=== PATIENT | male | born 1970 | race Caucasian/White ===

== ENCOUNTER 2018-03-01 15:24 | Outpatient (CLI) | payer OTHER | END 2018-03-01 15:25 | disposition home or self-care (01) | LOC: SC 15:24 | PROVIDERS: ATTEND Internal Medicine Pulmonary Disease | DX: G47.33 Obstructive sleep apnea (adult) (pediatric) (principal) | CPT/HCPCS: 99203; 99212 ==

== ENCOUNTER 2018-04-16 21:44 | Outpatient (CLI) | payer OTHER | END 2018-04-16 21:45 | disposition home or self-care (01) | LOC: SC 21:44 | PROVIDERS: ATTEND Internal Medicine Pulmonary Disease | DX: G47.33 Obstructive sleep apnea (adult) (pediatric) (principal); G47.61 Periodic limb movement disorder | CPT/HCPCS: 95810 ==

== ENCOUNTER 2018-05-26 15:33 | Outpatient (CLI) | payer OTHER | END 2018-05-26 15:34 | disposition home or self-care (01) | LOC: SC 15:33 | PROVIDERS: ATTEND Nurse Practitioner Family | DX: G47.33 Obstructive sleep apnea (adult) (pediatric) (principal); G47.61 Periodic limb movement disorder | CPT/HCPCS: 99212; 99214 ==

== ENCOUNTER 2018-07-26 15:43 | Outpatient (CLI) | payer OTHER | END 2018-07-26 15:44 | disposition home or self-care (01) | LOC: SC 15:43 | PROVIDERS: ATTEND Nurse Practitioner Family | DX: G47.33 Obstructive sleep apnea (adult) (pediatric) (principal) | CPT/HCPCS: 99212; 99214 ==

== ENCOUNTER 2018-10-27 15:45 | Outpatient (CLI) | payer OTHER | END 2018-10-27 15:46 | disposition home or self-care (01) | LOC: SC 15:45 | PROVIDERS: ATTEND Nurse Practitioner Family | DX: G47.33 Obstructive sleep apnea (adult) (pediatric) (principal) | CPT/HCPCS: 99212; 99214 ==

== ENCOUNTER 2019-07-27 15:12 | Outpatient (CLI) | payer OTHER ==
--- NOTE | 2019-07-27 16:10 | SLEEP CARE CONSULTATION ---
Information from patient questionnaire entered by Christine Joaquin. I have reviewed and concur with the information entered by Christine Joaquin. This document represents the service I personally performed and the decisions made by me, Giovana Horne, RN, MSN, [employer]. History of Present Illness Previous diagnosis: Severe, Obstructive Sleep Apnea-Hypopnea Syndrome AHI: 56.5 Reason for follow up: other (9 month) Equipment type: CPAP Equipment obtained from: [employer] Mask style: Nasal (N20) Mask brand: [employer] HPI additional information: The nasal bridge soreness from glasses was reduced reduced with new frame. The nathalie from nasal mask on bridge of nose is significantly less with changing mask cushions more often and resolves quickly. He was also advised to obtain more sleep. CPAP Compliance Data - Data Reviewed with Patient Average duration of nightly device use: 5.5 Compliance rate %: 92 (180 days) Current pressure setting (cmH2O): 6 Humidity settin Average residual AHI: 1.1 Subjective Patient concerns: reports: nasal congestion (with cold and affects CPAP use. ). denies: aerophagia, mask discomfort, air blowing in eyes, mask leak noise, condensation in mask/hose, dry mouth, nose, throat, epistaxis, other Observed to snore while using device: No Current pressure setting perceived as: comfortable On therapy, patient: reports: sleeping better, awakening more refreshed, being more awake and alert during the day, more rested overall. denies: drowsiness while driving Initial [place] Sleepiness Scale score: 7 Current [place] Sleepiness Scale score: 8 Allergies and Home Medications Known drug allergies: No Home medication list reviewed: Yes (none) Review of Systems Review of systems same as previous: No (Flu ) Physical Exam Blood Pressure: 110/80 Cuff size: regular Heart Rate: 72 O2 Saturation: 99 Height: 5 ft 8 in ( ) Weight: 191 lb 12.8 oz Weight change since last visit: gained 5 pounds Body Mass Index: 29.1 BMI Classification: Overweight Impression and Plan 1. Obstructive Sleep Apnea-Hypopnea Syndrome, severe, with good treatment compliance and good apnea control. On CPAP therapy, the patient has better sleep quality and is more rested overall. He is now using a bedtime timer on phone to get to bed on time but falling asleep while relaxing in bed listening to podcast. To prevent falling asleep without CPAP, he is advised to put on his CPAP mask before he listens to his podcast. I showed him the polysomnography hypnogram to show how the hypoxia from his apnea to show the importance of using his CPAP with all sleep to obtain maximum benefit from treatment. The goal is a minimum of 7 hours of sleep as discussed at last visit. Nasal congestion can be reduced with increasing the CPAP humidity as shown on sample device. The heated hose can be adjusted higher if condensation with higher humidity setting. Saline nasal spray sample was also given to use prior to CPAP to clear nasal secretions and wash off any nasal allergens to facilitate nasal breathing. In addition, a steamy shower before bed will often assist nasal drainage. Printed instructions given on how to change humidity and heated hose settings with rationale explaining why to change. Patient's apnea severity and rationale for treatment to reduce apnea, improve sleep quality and reduce cardiovascular and cerebrovascular events was reviewed. Since patient has more severe apnea in supine position, patient advised to avoid supine sleep with pillow positioning if unable to use CPAP while ill or if without electricity to reduce apnea risk and elevate head of bed 30-40 degrees. * Continue CPAP pressure at 6 cmH2O * Implement methods to reduce nasal congestion * Use CPAP with all sleep. * Notify me if snoring with mask or feeling that the pressure is too much or too little * Attempt to lose weight * Call this office if any problems using CPAP * Return for follow up in 1 year , or sooner if concerns arise Time Spent with Patient (minutes): 30 I spent 100% of this visit face to face with the patient with greater than 50% of this was spent time counseling the patient and coordination of care.
[2019-07-27 16:11] VITALS: BP 110/80
== END 2019-07-27 15:13 | disposition home or self-care (01) ==
LOC: SC 15:12
PROVIDERS: ATTEND Nurse Practitioner Family
DX: G47.33 Obstructive sleep apnea (adult) (pediatric) (principal); E66.3 Overweight; Z68.29 Body mass index [BMI] 29.0-29.9, adult
CPT/HCPCS: 99212; 99214

== ENCOUNTER 2020-07-27 16:15 | Outpatient (CLI) | payer OTHER ==
--- NOTE | 2020-07-27 16:45 | SLEEP CARE CONSULTATION ---
Information from patient questionnaire entered by Dontae Polanco. I have reviewed and concur with the information entered by Dontae Polanco. This document represents the service I personally performed and the decisions made by , Vickie Fernandez ARNP. History of Present Illness Service Date and Time: 07/27/2020 1615 Previous diagnosis: Severe, Obstructive Sleep Apnea-Hypopnea Syndrome AHI: 56.5 Reason for follow up: annual (Last seen 07/2019) Equipment type: CPAP Equipment obtained from: [facility] (getting supplies as needed) Mask style: Nasal (N20) Backup mask available: Yes (old mask) Last cushion change: 3-4 days ago Year and Where: 2018 [facility] additional information: DAJA SMITH was diagnosed to have severe, AHI 56.5, obstructive sleep apnea- hypopnea syndrome and returned today for CPAP therapy annual follow-up. CPAP Compliance Data - Data Reviewed with Patient Average duration of nightly device use: 4 h 26 min Compliance rate %: 56 Current pressure setting (cmH2O): 6 Average residual AHI: 0.9 Central apnea: 0.2 Obstructive apnea: 0.3 Subjective Missed days of use due to: reports: other (dog sick; forget to put on) Patient concerns: reports: other (sometimes left ear is plugged). denies: aerophagia, mask discomfort, air blowing in eyes, mask leak noise, condensation in mask/hose, nasal congestion, dry mouth, nose, throat, epistaxis Observed to snore while using device: No Current pressure setting perceived as: comfortable On therapy, patient: reports: sleeping better, awakening more refreshed, being more awake and alert during the day, more rested overall. denies: drowsiness while driving Initial [place] Sleepiness Scale score: 7 (in 2018) Current [place] Sleepiness Scale score: 8 Allergies and Home Medications Drug allergies reviewed: Yes (NKDA) Home medication list reviewed: Yes (no changes) Review of Systems Review of systems same as previous: Yes (no changes) Physical Exam Heart Rate: 83 O2 Saturation: 98 Height: 5 ft 8 in ( ) Weight: 194 lb Body Mass Index: 29.5 BMI Classification: Overweight Impression and Plan 1. Obstructive Sleep Apnea-Hypopnea Syndrome, severe, with fair treatment compliance and good apnea control. On CPAP therapy, the patient has better sleep quality and is more rested overall. Patient has missed some time on his machine because his dog has been sick and he has to get up with him several times a night. He will forget to put the mask back on or just not put back on for rest of night. He has missed some time when he decides to not use it on the weekend. He was reminded of compliance guidelines and he voiced understanding. I will have him follow up in 1-2 months to recheck compliance. He voiced understanding and agreement with plan of care. Patient's apnea severity and rationale for sandee tment to reduce apnea, improve sleep quality and reduce cardiovascular and cerebrovascular events was reviewed. * Continue auto CPAP pressure at 6 cmH2O * Notify me if snoring with mask or feeling that the pressure is too much or too little * Attempt to lose weight * Call this office if any problems using CPAP * Return for follow up in 1-2 months, or sooner if concerns arise Counseling Topics: Spare mask, Weight loss health impact Visit Type: In Office Time Spent with Patient (minutes): 17 Provider Statement: I spent 100% of the Face to Face Visit with the patient with greater than 50% spent counseling the patient and coordination of care.
== END 2020-07-27 16:16 | disposition home or self-care (01) ==
LOC: SC 16:15
PROVIDERS: ATTEND Nurse Practitioner Family
DX: G47.33 Obstructive sleep apnea (adult) (pediatric) (principal); E66.3 Overweight; Z68.29 Body mass index [BMI] 29.0-29.9, adult
CPT/HCPCS: 99212

== ENCOUNTER 2020-09-25 16:17 | Outpatient (CLI) | payer OTHER ==
--- NOTE | 2020-09-25 16:34 | SLEEP CARE CONSULTATION ---
Information from patient questionnaire entered by Dontae Polanco. I have reviewed and concur with the information entered by Dontae Polanco. This document represents the service I personally performed and the decisions made by me, Vickie Fernandez ARNP. History of Present Illness Service Date and Time: 09/25/2020 1617 Previous diagnosis: Severe, Obstructive Sleep Apnea-Hypopnea Syndrome AHI: 56.5 Reason for follow up: other (2-month followup) Equipment type: CPAP Equipment obtained from: [employer] (getting supplies as needed) Mask style: Nasal (over the nose) Backup mask available: Yes (old mask) Last cushion change: 1 week ago Year and Where: 2018 [facility] additional information: DAJA SMITH was diagnosed to have severe, AHI 56.5, obstructive sleep apnea- hypopnea syndrome and returned today for CPAP therapy two month compliance recheck follow-up. CPAP Compliance Data - Data Reviewed with Patient Average duration of nightly device use: 6 h 3 min Compliance rate %: 97 Current pressure setting (cmH2O): 6 Average residual AHI: 1.0 Subjective Patient concerns: denies: aerophagia, mask discomfort, air blowing in eyes, mask leak noise, condensation in mask/hose, nasal congestion, dry mouth, nose, throat, epistaxis, other Observed to snore while using device: No Current pressure setting perceived as: comfortable On therapy, patient: reports: sleeping better, awakening more refreshed, being more awake and alert during the day, more rested overall. denies: drowsiness while driving Initial [place] Sleepiness Scale score: 7 (in 2018) Current [place] Sleepiness Scale score: 6 Allergies and Home Medications Home medication list reviewed: Yes (no new meds) Review of Systems Review of systems same as previous: Yes (no changes) Physical Exam Heart Rate: 84 O2 Saturation: 97 Height: 5 ft 8 in ( ) Weight: 193 lb Body Mass Index: 29.3 BMI Classification: Overweight Impression and Plan 1. Obstructive Sleep Apnea-Hypopnea Syndrome, severe, with good treatment compliance and good apnea control. On CPAP therapy, the patient has better sleep quality and is more rested overall. He is not very compliant with his CPAP treatment and has had significant improvement of his sleep apnea. He is satisfied with his treatment. Patient's apnea severity and rationale for treatment to reduce apnea, improve sleep quality and reduce cardiovascular and cerebrovascular events was reviewed. * Continue autoCPAP pressure at 6 cmH2O * Notify me if snoring with mask or feeling that the pressure is too much or too little * Attempt to lose weight * Call this office if any problems using CPAP * Return for follow up in 1 year, or sooner if concerns arise Counseling Topics: Spare mask, Weight loss health impact Visit Type: In Office Time Spent with Patient (minutes): 16 Provider Statement: I spent 100% of the Face to Face Visit with the patient with greater than 50% spent counseling the patient and coordination of care.
== END 2020-09-25 16:18 | disposition home or self-care (01) ==
LOC: SC 16:17
PROVIDERS: ATTEND Nurse Practitioner Family
DX: G47.33 Obstructive sleep apnea (adult) (pediatric) (principal); E66.3 Overweight; Z68.29 Body mass index [BMI] 29.0-29.9, adult
CPT/HCPCS: 99212

== ENCOUNTER 2021-10-30 10:49 | Outpatient (CLI) | payer BC, OTHER ==
--- NOTE | 2021-10-30 11:38 | SLEEP CARE CONSULTATION ---
Information from patient questionnaire entered by Stewart Roberson MA. I have reviewed and concur with the information entered by Stewart Roberson MA. This document represents the service I personally performed and the decisions made by , Vickie Fernandez ARNP. History of Present Illness Service Date and Time: 10/30/2021 1049 Previous diagnosis: Severe, Obstructive Sleep Apnea-Hypopnea Syndrome AHI: 56.5 Reason for follow up: annual (LAST SEEN 09/25/2020, ALONZO 06/2018, RESMED, ) Equipment type: CPAP Equipment obtained from: [employer] (getting supplies as needed) Mask style: Nasal (over the nose) Backup mask available: Yes (other mask) Last cushion change: few days ago Year and Where: 2017 [facility] HPI additional information: DAJA SMITH was diagnosed to have severe, AHI 56.5, obstructive sleep apnea- hypopnea syndrome and returned today for CPAP therapy annual follow-up. Sleep Study - Results Year and Where: 2017 [facility] CPAP Compliance Data - Data Reviewed with Patient Average duration of nightly device use: 5 HOURS 32 MINUTES Compliance rate %: 81 (05/02/21-10/28/21; 180 days, used 176/180) Current pressure setting (cmH2O): 6 Average residual AHI: 1.2 Central apnea: .1 Obstructive apnea: .4 Hypopnea: .6 Average large leak: 10.2 Subjective Missed days of use due to: reports: travel ([place], ) Patient concerns: denies: aerophagia, mask discomfort, air blowing in eyes, mask leak noise, condensation in mask/hose, nasal congestion, dry mouth, nose, throat, epistaxis, other Observed to snore while using device: No Current pressure setting perceived as: comfortable On therapy, patient: reports: sleeping better, awakening more refreshed, being more awake and alert during the day, more rested overall. denies: drowsiness while driving Initial [place] Sleepiness Scale score: 7 (in 2018) Current [place] Sleepiness Scale score: 7 (09/2021) Allergies and Home Medications Known drug allergies: No Drug allergies reviewed: Yes Home medication list reviewed: Yes (vitamin D) Review of Systems Review of systems same as previous: No (eye blurriness 1 month ago) Physical Exam Vital signs obtained and entered by: STEVE RAMIREZ Blood Pressure: 128/77 (RIGHT, PULSE 82, RESP 18, ) Heart Rate: 80 O2 Saturation: 98 (CLOTH) Height: 5 ft 8 in ( ) Weight: 191 lb Body Mass Index: 29.0 BMI Classification: Overweight Impression and Plan 1. Obstructive Sleep Apnea-Hypopnea Syndrome, severe, with good treatment compliance and good apnea control. On CPAP therapy, the patient has better sleep quality and is more rested overall. Patient denies problems with oral dryness, nasal congestion, epistaxis, skin irritation or aerophagia. Patient's apnea severity and rationale for treatment to reduce apnea, improve sleep quality and reduce cardiovascular and cerebrovascular events was reviewed. * Continue CPAP pressure at 6 cmH2O * Notify me if snoring with mask or feeling that the pressure is too much or too little * Attempt to lose weight * Call this office if any problems using CPAP * Return for follow up in 1 year, or sooner if concerns arise Counseling Topics: Spare mask, Weight loss health impact Visit Type: In Office Time Spent with Patient (minutes): 20 Provider Statement: I spent 100% of the Face to Face Visit with the patient with greater than 50% spent counseling the patient and coordination of care.
[2021-10-30 11:39] VITALS: BP 128/77
== END 2021-10-30 10:50 | disposition home or self-care (01) ==
LOC: SC 10:49
PROVIDERS: ATTEND Nurse Practitioner Family
DX: G47.33 Obstructive sleep apnea (adult) (pediatric) (principal); E66.3 Overweight; Z68.29 Body mass index [BMI] 29.0-29.9, adult
CPT/HCPCS: 99212; 99213

== ENCOUNTER 2021-11-11 03:12 | Emergency (ER) | payer BC, OTHER ==
[2021-11-11 04:19] LABS: BASOPHILS % (AUTO) 0.2 %; HGB - HEMOGLOBIN 15.4 g/dL (14.0-18.0); LYMPHOCYTES % (AUTO) 7.1 %; MEAN CORPUSCULAR HEMOGLOBIN 31.3 pg (27.0-31.0); MEAN CORPUSCULAR HGB CONC 34.2 g/dL (32.0-36.0); MEAN CORPUSCULAR VOLUME 91.5 fL (80.0-94.0); MEAN PLATELET VOLUME 8.8 fL (7.4-11.4); MONOCYTES # (AUTO) 0.4 10^3/uL (0.0-1.0); NEUTROPHILS % (AUTO) 89.4 %; PLT - PLATELET COUNT 408 10^3/uL (130-450); RED BLOOD COUNT 4.92 10^6/uL (4.70-6.10); RED CELL DISTRIBUTION WIDTH 13.2 % (12.0-15.0); WHITE BLOOD COUNT 14.6 x10^3/uL (4.8-10.8)
[2021-11-11 04:34] LABS: ALBUMIN 4.1 g/dL (3.2-5.5); ALBUMIN/GLOBULIN RATIO 1.3 (1.0-2.2); BILIRUBIN,TOTAL 0.8 mg/dL (0.2-1.0); CALCIUM 9.7 mg/dL (8.5-10.3); CREATININE 1.3 mg/dL (0.6-1.2); POTASSIUM 4.6 mmol/L (3.5-5.0); TOTAL PROTEIN 7.2 g/dL (6.7-8.2)
[2021-11-11] MEDS ORDERED: SODIUM CHLORIDE 0.9% 1,000 ML IV STA (04:59)
[2021-11-11] MEDS ORDERED: MORPHINE 2 MG/ML CARPUJECT IVP STA (04:59)
[2021-11-11] MEDS ORDERED: ONDANSETRON 4 MG/2 ML VIAL IVP STA (04:59)
--- NOTE | 2021-11-11 06:00 | ED Physician Documentation ---
PD HPI ABD PAIN - Stated complaint Stated Complaint: R SIDE PAIN/VOMITTING - Chief complaint Chief Complaint: Back Pain - History obtained from History obtained from: Patient - Additional information Additional information: Patient is a 51-year-old male with no significant past medical history presenting for evaluation of right flank pain that has been present since 10 PM. Patient reports golfing a significant amount in the last 2 days and walking the golf course. He went to bed around 839 and woke up shortly thereafter with right flank pain and episodes of vomiting. He has had trouble getting comfortable. He denies the pain radiates anywhere. It is dull and sharp. Nothing makes it better or worse. He denies dysuria, hematuria, history of kidney stones, fever, chest pain or trouble breathing.He has not taken anything for the pain. Review of Systems Constitutional: denies: Fever Nose: denies: Congestion Cardiac: denies: Chest pain / pressure Respiratory: denies: Dyspnea, Cough GI: reports: Abdominal Pain, Nausea, Vomiting Musculoskeletal: reports: Back pain (Right flank) Neurologic: denies: Headache PD PAST MEDICAL HISTORY - Present Medications Home Medications: Ambulatory Orders Medication Instructions Recorded Confirmed Ondansetron Odt [Zofran] 4 mg TL Q6H PRN #10 tablet 11/11/21 Oxycodone HCl/Acetaminophen 1 each PO Q6H PRN #14 tablet 11/11/21 [Percocet 5-325 mg Tablet] Tamsulosin [Flomax] 0.4 mg PO DAILY #14 cap 11/11/21 - Allergies Allergies/Adverse Reactions: Allergies Allergy/AdvReac Type Severity Reaction Status Date / Time No Known Drug Allergies Allergy Verified 11/11/21 04:43 PD ED PE NORMAL - General General: Alert and oriented X 3, No acute distress, Well developed/nourished - HEENT HEENT: Atraumatic - Neck Neck: Supple, no meningeal sign - Cardiac Cardiac: RRR, No murmur, Strong equal pulses - Respiratory Respiratory: No respiratory distress, Clear bilaterally - Abdomen Abdomen: Normal bowel sounds, Soft, Non tender, No organomegaly - Derm Derm: Warm and dry - Extremities Extremities: No edema - Neuro Neuro: Normal speech - Psych Psych: Normal mood Results - Vitals Vitals: Vital Signs - 24 hr 06/13/22 06/13/22 06/13/22 03:27 05:14 06:58 Temperature 36.1 C L Heart Rate 102 H 81 80 Respiratory 18 14 15 Rate Blood Pressure 150/106 H 147/94 H 147/96 H O2 Saturation 98 95 99 Oxygen O2 Source Room air - Labs Labs: Laboratory Tests 11/11/21 11/11/21 11/11/21 04:13 04:13 06:02 WBC 14.6 H RBC 4.92 Hgb 15.4 Hct 45.0 MCV 91.5 MCH 31.3 H MCHC 34.2 RDW 13.2 Plt Count 408 MPV 8.8 Neut # (Auto) 13.0 H Lymph # (Auto) 1.0 L [place] # (Auto) 0.4 Eos # (Auto) 0.0 Baso # (Auto) 0.0 Absolute Nucleated RBC 0.00 Nucleated RBC % 0.0 Sodium 138 Potassium 4.6 Chloride 104 Carbon Dioxide 26 Anion Gap 8.0 BUN 23 H Creatinine 1.3 H Estimated GFR (MDRD) 59 L Glucose 157 H Calcium 9.7 Total Bilirubin 0.8 AST 25 ALT 21 Alkaline Phosphatase 77 Total Protein 7.2 Albumin 4.1 Globulin 3.1 Albumin/Globulin Ratio 1.3 Lipase 30 Urine Color YELLOW Urine Clarity CLEAR Urine pH 5.5 Ur Specific [place] >=1.030 H Urine Protein NEGATIVE Urine Glucose (UA) NEGATIVE Urine Ketones 40 H Urine Occult Blood MODERATE H Urine Nitrite NEGATIVE Urine Bilirubin NEGATIVE Urine Urobilinogen 0.2 (NORMAL) Ur Leukocyte Esterase NEGATIVE Urine RBC 0-5 Urine WBC 0-3 Ur Squamous Epith Cells RARE Squamous Urine Bacteria None Seen Ur Microscopic Review INDICATED Urine Culture Comments NOT INDICATED PD MEDICAL DECISION MAKING - ED course Complexity details: reviewed results, re-evaluated patient, d/w patient ED course: Patient with right flank pain and vomiting. Vital signs are stable. Abdominal exam is relatively benign. Labs with mild leukocytosis but patient does not appear septic. Cr 1.3. No previous labs available for comparison. CT scan demonstrates 2 mm right ureter stone near the bladder.Patient had adequate pain control with 1 dose of medication in the ER. I have reviewed his findings and discussed treatment plan for ureter stone. He Is advised on need for follow-up with his primary care doctor as well as return precautions. No signs of infection. Departure - Departure Disposition: 01 Home, Self Care Clinical Impression: Right ureteral stone Condition: Stable Instructions: ED Stone Renal W Colic Prescriptions: Tamsulosin [Flomax] 0.4 mg PO DAILY #14 cap Oxycodone HCl/Acetaminophen [Percocet 5-325 mg Tablet] 1 each PO Q6H PRN #14 tablet PRN Reason: pain Ondansetron Odt [Zofran] 4 mg TL Q6H PRN #10 tablet PRN Reason: Nausea / Vomiting Comments: You were evaluated for pain to your right back and found to have a kidney stone. It measures 2 mm And is close to the bladder. You have a good likelihood of passing the stone. I have sent medications to the right [facility] in [place] to help you with this including pain medication and nausea medication. [place] If you have any worsening symptoms such as fever, increased pain, any concerns please return to the emergency department. I am prescribing a short course of narcotic pain medication for you. These are potentially dangerous and addictive medications that should be used carefully. These medications may constipate you. Take an [id number]-[id number] stool softener (docusate) twice daily with plenty of water while taking these medications. If you go 24 hours without a bowel movement, take clam-[id number] miralax, per package instructions. Do not drink or drive while taking these medications. If you received narcotic or sedating medications while in the emergency department, do not drive for 24 hours. Store this medication in a safe, secure place and out of reach of children. It is a violation of federal law to give or sell this medication to another person or to use in a manner other than prescribed. The ED will not refill narcotic prescriptions, including prescriptions lost or stolen. To dispose of unwanted medications: 1. [facility] at [address] in [place] has a medication drop box. They accept prescription medications (in pill form) Thursday through Thursday 9:00 a.m. to 5:00 p.m. 2. [facility] accepts prescription medications (in pill form only) for disposal year round. Call for more info rmation. 3. Contact the [facility] for the next [facility] sponsored prescription drug collection event. , [phone], or [phone]; Note that many narcotic pain relievers also contain Tylenol/acetaminophen. Please ensure that your total dose of acetaminophen from all sources does not exceed 3 g (3000 mg) per day. Forms: Activity restrictions Discharge Date/Time: 11/11/21 07:01
[2021-11-11] MEDS ORDERED: oxyCODONE/ACET 5/325 Prepack 4 PO STA (06:32)
[2021-11-11] MEDS ORDERED: ONDANSETRON ODT 4 MG Prepack 2 TL PRN (06:32)
[2021-11-11 06:33] LABS: BILIRUBIN,URINE NEGATIVE (NEGATIVE); GLUCOSE, URINE (UA) NEGATIVE (NEGATIVE); KETONES,URINE (UA) 40 mg/dL (NEGATIVE); LEUKOCYTE ESTERASE, URINE NEGATIVE (NEGATIVE); NITRITE,URINE NEGATIVE (NEGATIVE); OCCULT BLOOD,URINE MODERATE (NEGATIVE); PH,URINE 5.5 PH (5.0-7.5); PROTEIN,URINE NEGATIVE (NEGATIVE); UROBILINOGEN,URINE 0.2 (NORMAL) E.U./dL (NORMAL)
[2021-11-11 06:42] LABS: BACTERIA,URINE None Seen /HPF (None Seen); CLARITY,URINE CLEAR (CLEAR); RBC,URINE 0-5 /HPF (0-5); SQUAMOUS EPITHELIAL CELL,UR RARE Squamous (<= Few); WBC,URINE 0-3 /HPF (0-3)
[2021-11-11 07:02] VITALS: BP 147/96
--- NOTE | 2021-11-11 08:16 | CT Report ---
PROCEDURE: Abdomen/Pelvis WO INDICATIONS: R flank pain TECHNIQUE: Noncontrast 5 mm thick sections acquired from the diaphragms to the symphysis. 5 mm coronal and sagi ttal reformats were then performed. For radiation dose reduction, the following was used: automated exposure control, adjustment of mA and/or kV according to patient size. COMPARISON: None. FINDINGS: Image quality: Excellent. ABDOMEN: Lung bases: Streaky opacities are present within the lingula.. Heart size is normal. Solid organs: Liver is mildly enlarged with slight steatosis. The spleen is normal in size. Gallbla dder Pancreas is normal in contours. No adrenal nodules. Kidneys are normal in size. There is a 7 mm calcification within the superior right renal pole, Hounsfield units 1201. Mild hydronephrosis is present. There is a 2 mm calcification in the distal right ureter approximately 1 cm proximal to the ureterovesicular junction. Mild hydroureter is present. Peritoneum and bowel: Unenhanced bowel loops demonstrate normal wall thickness and caliber. No free fluid or air. Nodes and vessels: No retroperitoneal or mesenteric adenopathy by size criteria. Aorta and inferior vena cava are normal in caliber. Miscellaneous: Fat-containing ventral hernia is present. PELVIS: Genitourinary: Bladder wall thickness is normal. Miscellaneous: No inguinal hernias or adenopathy. Bones: No suspicious bony lesions. No vertebral body compression fractures. IMPRESSION: Mild right hydronephrosis and hydroureter with 2 mm calcification at the distal right ureter. 7 mm superior right renal pole calculus. The above findings are concordant with preliminary report. Reviewed by: Julissa Fink MD on 11/11/2021 8:15 AM PDT Approved by: Julissa Fink MD on 11/11/2021 8:15 AM PDT Station ID: [id number]
== END 2021-11-11 07:01 | disposition home or self-care (01) ==
LOC: ED 03:12
DX: N13.2 Hydronephrosis with renal and ureteral calculous obstruction (principal)
CPT/HCPCS: 36415; 80053; 81001; 81003; 83690; 85025; 87086; 96361; 96374; 96375; 99282